=== PATIENT | female | born 1960 | race Caucasian/White ===

== ENCOUNTER 2022-10-16 18:28 | Emergency (ER) | payer BC ==
[~2022-10-16] VITALS: Ht 165.1 cm; Wt 63.5 kg
[2022-10-16] MEDS ORDERED: LORazepam 1 MG TABLET PO ONE (18:45)
[2022-10-16 19:28] VITALS: BP_SYST 163
--- NOTE | 2022-10-16 19:44 | NUR ---
Patient to ER bed 04 to gown for evaluation. Side rails up. Report given to JUICE BROWN.
[2022-10-16] MEDS ORDERED: HALOPERIDOL LACTATE 5 MG/ML VIAL IM ONE (20:15)
[2022-10-16] MEDS ORDERED: LORazepam 2 MG/ML VIAL IM ONE (20:15)
--- NOTE | 2022-10-16 20:43 | NUR ---
First contact with the pt. LIZETHO x4. calm at this time. States mom passed very recently. denies CP, SOB at this time.
[2022-10-16 22:23] VITALS: BP_SYST 101
--- NOTE | 2022-10-16 22:25 | NUR ---
Patient given written and verbal discharge instructions and verbalizes understanding. ER MD discussed with patient the results and treatment provided. Patient in stable condition. ID arm band removed. Patient educated to follow up with PMD. Pain Scale 0. Opportunity for questions provided and answered. Remains AAo x4, VSS, RR even and unlabored. Placed in a WC and wheleed off the floor.
== END 2022-10-16 22:23 | disposition home or self-care (01) ==
LOC: SED 18:28
DX: F41.9 Anxiety disorder, unspecified (principal); R00.2 Palpitations; R51.9 Headache, unspecified; Z88.0 Allergy status to penicillin; Z79.899 Other long term (current) drug therapy
CPT/HCPCS: 99291; 93005; 96372; J1630; J2060